=== PATIENT | female | born 1960 ===

== ENCOUNTER 2018-09-22 16:16 | Outpatient (CLI) | payer BC | END 2018-09-22 16:17 | disposition home or self-care (01) | LOC: C.MAMMO 16:16 | DX: Z12.31 Encounter for screening mammogram for malignant neoplasm of breast (principal) ==

== ENCOUNTER 2018-10-14 10:41 | Outpatient (CLI) | payer BC | END 2018-10-14 10:42 | disposition home or self-care (01) | LOC: C.LAB 10:41 ==

== ENCOUNTER 2018-11-10 13:52 | Outpatient (CLI) | payer BC | END 2018-11-10 13:53 | disposition home or self-care (01) | LOC: C.LAB 13:52 | DX: M79.9 Soft tissue disorder, unspecified (principal) ==

== ENCOUNTER 2018-11-22 11:55 | Outpatient (CLI) | payer BC | END 2018-11-22 11:56 | disposition home or self-care (01) | LOC: C.MRIC 11:56 ==